=== PATIENT | female | born 1985 | race Caucasian/White ===

== ENCOUNTER 2017-01-30 20:15 | Emergency (ER) | payer OTHER ==
[~2017-01-30] VITALS: Ht 154.9 cm; Wt 72.6 kg
[2017-01-30] MEDS ORDERED: VITA100037 PO (20:38)
[2017-01-30] MEDS ORDERED: PREN200C2 PO (20:38)
[2017-01-30 21:53] LABS: MEAN CORPUSCULAR HEMOGLOBIN 27.5 pg (27.0-33.0); MEAN CORPUSCULAR HGB CONC 33.8 g/dl (32.0-36.5); MEAN CORPUSCULAR VOLUME 81.3 fl (80.0-96.0); RED CELL DISTRIBUTION WIDTH 13.6 % (11.5-14.5); WHITE BLOOD COUNT 10.4 K/mm3 (4.0-10.0)
[2017-01-30 22:12] LABS: ABG BASE EXCESS -4.6 (-2.0-2.0); ABG HCO3 18.3 MEQ/L (22.0-26.0); ABG PARTIAL PRESSURE CO2 28.7 mmHg (35.0-45.0); ABG STANDARD HCO3 20.7 MEQ/L (22.0-26.0); ABG TOTAL CO2 19.2 MEQ/L (22.0-29.0); ABG pH (ARTERIAL) 7.422 UNITS (7.350-7.450)
[2017-01-30 22:21] LABS: ALBUMIN 3.9 GM/DL (3.2-5.2); ALBUMIN/GLOBULIN RATIO 1.05 (1.00-1.93); ALKALINE PHOSPHATASE 88 U/L (45-117); ALT/SGPT 20 U/L (12-78); AMYLASE 26 U/L (25-115); ANION GAP 14 MEQ/L (8-16); AST/SGOT 9 U/L (15-37); BILIRUBIN,DIRECT 0.2 MG/DL (0.0-0.2); BILIRUBIN,TOTAL 0.9 MG/DL (0.2-1.0); BLOOD UREA NITROGEN 10 MG/DL (7-18); CARBON DIOXIDE LEVEL 20 MEQ/L (21-32); CHLORIDE LEVEL 104 MEQ/L (98-107); CREATININE FOR GFR 0.61 MG/DL (0.55-1.02); GLOMERULAR FILTRATION RATE > 60.0 (>60); GLUCOSE, FASTING 96 MG/DL (70-105); POTASSIUM SERUM 3.7 MEQ/L (3.5-5.1); SODIUM LEVEL 138 MEQ/L (136-145); TOTAL PROTEIN 7.6 GM/DL (6.4-8.2)
[2017-01-30 23:50] LABS: METHADONE URINE NEGATIVE (NEGATIVE)
[2017-01-31] MEDS ORDERED: NS 1,000 ML IV ONE (00:15)
[2017-01-31] MEDS ORDERED: KETOROLAC 30 MG/ML VIAL (J1885) IV ONE (00:30)
[2017-01-31 04:55] VITALS: BP 180/112
--- NOTE | 2017-01-31 08:03 | REP ---
Clinical: Dyspnea . Comparison: None . Technique: PA and lateral. Findings: The mediastinum and cardiac silhouette are normal. The lung epps are clear and without acute consolidation, effusion, or pneumothorax. The skeletal structures are intact and normal. Impression: 1. No acute cardiopulmonary process. Signed by Scott Fish MD 01/31/2017 07:54 A
== END 2017-01-31 05:15 | disposition home or self-care (01) ==
LOC: M ED 21:01
DX: F53 Mental and behavioral disorders associated with the puerperium, not elsewhere classified (principal); F44.9 Dissociative and conversion disorder, unspecified; F41.9 Anxiety disorder, unspecified; R06.4 Hyperventilation; Z88.0 Allergy status to penicillin; Z79.899 Other long term (current) drug therapy; J45.909 Unspecified asthma, uncomplicated; G43.909 Migraine, unspecified, not intractable, without status migrainosus; K21.9 Gastro-esophageal reflux disease without esophagitis; K58.9 Irritable bowel syndrome, unspecified